=== PATIENT | male | born 1940 | race Caucasian/White ===

== ENCOUNTER 2018-09-15 10:58 | Day surgery (SDC) | payer MEDICARE, SELFPAY ==
[2018-09-15 11:40] VITALS: BP 133/70; PULSE 75; RESP 16; TEMP 36.6; O2SAT 100; BMI 24.0
[2018-09-15] MEDS: Triamcinolone Acetonide 40 MG/ML Vial (12:58)
[2018-09-15] MEDS: Bupivacaine 0.5% PF 10 ML VIAL (12:58)
[2018-09-15 13:09] VITALS: BP 116/77; BP 133/70; PULSE 74; RESP 16; TEMP 36.2; O2SAT 98
--- NOTE | 2018-09-15 13:11 | DCINST_ITS ---
Discharge Activity: Return to Normal Activity, No Restrictions Weight Bearing Status: Weight bearing as tolerated Allergies/Adverse Reactions: Allergies hydromorphone [From Dilaudid] Allergy (Verified 09/09/18 14:01) Vomiting morphine Allergy (Verified 09/09/18 14:01) Vomiting Medications to take at Discharge Acetaminophen [Tylenol Arthritis] 650 mg PO BID 09/09/18 Adalimumab [Humira] 40 mg SQ Q14D 09/09/18 Bisoprolol/Hydrochlorothiazide [Bisoprolol-Hctz 2.5-6.25 mg Tb] 1 each PO DAILY 09/09/18 Fenofibrate 160 mg PO DAILY 09/09/18 Multivit-Min/FA/Lycopen/Lutein [Centrum Silver Men Tablet] 1 each PO DAILY 09/09/18 Multivit-Minerals/FA/Lycopene [One Daily For Men Tablet] 1 each PO DAILY 09/09/18 [place]-3/Dha/Epa/Fish Oil [[place] 3 500 Softgel] 1 each PO QODAY 09/09/18 Turmeric Root Extract [Turmeric] 500 mg PO DAILY 09/09/18 Primary Care Physician: Luis Zambrano [Primary Care Provider] - Test Results: Test results from this visit will be discussed in further detail at your follow- up appointment, if applicable. Please Follow Up With: Sandip Bernstein DPM - 1 month
--- NOTE | 2018-09-15 13:13 | OP.PCM_ITS ---
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 patient has tried nsaids, shoe gear modifications and inserts. despite conservative care, he continues to have pain. We discussed further options for arthritis of right 1st mtpj. we discuss ed steroid injection of right 1st mtpj vs fusion of right 1st mtpj. patient interested in trying an injection. given the severe narrowing of his right 1st mtpj on clinical and radiographic exam, we discussed performing injection with the assistance of xray. discussed risks of procedure not limited to infection, pain, swelling, bleeding, cartilage injury, tendon or bone injury, recurrent pain, failure to resolve pain, need for fusion in future. discussed patient adrenal insufficiency. discussed possible need for steroid dosing post-op. given the relative minimally invasive procedure, patient agrees to holding on any steroid at this time. patient consents to proceed with injection. Patient was transferred to operating room and placed on operating room table in supine position. He was placed under mac anesthesia. the right foot was prepped and draped in usual aseptic technique. time out was performed making note of procedure. xray was then used to confirm 1st mtpj. the right 1st mtpj was distracted and successful injection was performed to right 1t mtpj consisting of 0.5 cc of kenalog, 0.5 cc of dexamethazone and 0.5 cc of 0.5% marcaine plain. band aid was then applied. patient was awakened and found to be in stable condition. he was transferred to pacu in stable condition. he will f/u in 1 month or as needed.
[2018-09-15 13:15] VITALS: BP 123/71; BP 133/70; PULSE 69; RESP 16; O2SAT 98
[2018-09-15 13:20] VITALS: BP 114/71; BP 133/70; PULSE 71; RESP 16; O2SAT 96
[2018-09-15 13:25] VITALS: BP 120/76; BP 133/70; PULSE 71; RESP 16; TEMP 36.5; O2SAT 96
[2018-09-15 14:30] VITALS: BP 133/70
== END 2018-09-15 14:37 | disposition home or self-care (01) ==
LOC: SDC 11:09 → AC 11:09
PROVIDERS: Family Provider Internal Medicine; PCP Internal Medicine; Referring Provider Podiatrist Foot & Ankle Surgery; Visit Provider Podiatrist Foot & Ankle Surgery
PROC: (CPT 20605; principal; 2018-09-15 12:35)
DX: M20.21 Hallux rigidus, right foot (principal); D64.9 Anemia, unspecified; E78.00 Pure hypercholesterolemia, unspecified; I12.9 Hypertensive chronic kidney disease with stage 1 through stage 4 chronic kidney disease, or unspecified chronic kidney disease; N18.3 Chronic kidney disease, stage 3 (moderate); K50.90 Crohn's disease, unspecified, without complications; Z79.899 Other long term (current) drug therapy
CPT/HCPCS: 20600; 76000; J7120; J2405